=== PATIENT | female | born 1945 | race Caucasian/White ===

== ENCOUNTER 2024-04-16 10:47 | Emergency (ER) | payer MEDICARE, OTHER ==
[~2024-04-16] VITALS: Ht 157.5 cm; Wt 60.5 kg
[2024-04-16 10:54] VITALS: TEMP 97.3
[2024-04-16 11:56] VITALS: BP 136/86; PULSE 67; O2SAT 100
[2024-04-16 11:57] VITALS: RESP 16
[2024-04-16] MEDS ORDERED: METO-411 PO (12:04)
[2024-04-16] MEDS ORDERED: METF-438 PO (12:04)
[2024-04-16] MEDS ORDERED: PRED10TA23 PO (13:27)
== END 2024-04-16 13:37 | disposition home or self-care (01) ==
LOC: ER 10:48
DX: I83.11 Varicose veins of right lower extremity with inflammation (principal); Z88.1 Allergy status to other antibiotic agents; Z88.2 Allergy status to sulfonamides; Z88.8 Allergy status to other drugs, medicaments and biological substances; Z79.84 Long term (current) use of oral hypoglycemic drugs; Z79.52 Long term (current) use of systemic steroids
CPT/HCPCS: 93971; 99284